=== PATIENT | female | born 1950 | race Caucasian/White ===

== ENCOUNTER → 2016-08-15 | Outpatient (CLI) | payer BC | LOC: US 15:30 | DX: M79.605 Pain in left leg (principal); R22.42 Localized swelling, mass and lump, left lower limb; Z86.718 Personal history of other venous thrombosis and embolism | CPT/HCPCS: 93971 ==

== ENCOUNTER → 2016-08-29 | Outpatient (CLI) | payer BC | LOC: KOH-I 12:00 | DX: M54.5 Low back pain (principal); M47.816 Spondylosis without myelopathy or radiculopathy, lumbar region; M25.78 Osteophyte, vertebrae | CPT/HCPCS: 72110 ==

== ENCOUNTER → 2016-11-08 | Outpatient (CLI) | payer BC | LOC: KOH-I 10:59 | DX: M79.662 Pain in left lower leg (principal); M25.552 Pain in left hip; M25.572 Pain in left ankle and joints of left foot | CPT/HCPCS: 73552; 73564; 73590 ==

== ENCOUNTER → 2020-06-10 | Outpatient (CLI) | payer BC, OTHER | LOC: EXRD 12:59 | DX: M19.90 Unspecified osteoarthritis, unspecified site (principal) | CPT/HCPCS: 73030 ==

== ENCOUNTER 2021-03-04 11:25 | Inpatient (IN) | payer MEDICARE, BC ==
[~2021-03-04] VITALS: Ht 165.1 cm; Wt 115.7 kg
[2021-03-04 13:00] LABS: HEMOGLOBIN 15.7 gm/dl (12.3-15.3); RED BLOOD COUNT 4.88 M/UL (4.00-5.10); WHITE BLOOD COUNT 12.7 K/UL (4.5-11.0)
[2021-03-04 13:24] LABS: BUN/CREATININE RATIO 7 (0-10)
[2021-03-04] MEDS ORDERED: AMLODIPINE BESYL5 MG PO (22:19)
[2021-03-04] MEDS ORDERED: ASPIRIN81 MG PO (22:19)
[2021-03-04] MEDS ORDERED: VITAMIN D325 MCG PO (22:21)
[2021-03-04] MEDS ORDERED: PREVACID30 MG PO (22:21)
[2021-03-04] MEDS ORDERED: LEXAPRO10 MG PO (22:21)
[2021-03-04] MEDS ORDERED: LEVOTHYROXINE88 MC1 PO (22:22)
[2021-03-04] MEDS ORDERED: METHOTREXATE T2.5 MG PO (22:24)
[2021-03-04] MEDS ORDERED: MILLIPRED DP5 M1 PO (22:25)
[2021-03-04] MEDS ORDERED: VALSARTAN160 MG PO (22:26)
[2021-03-04] MEDS ORDERED: VITAMIN B-121000 MC1 PO (22:26)
[2021-03-04] MEDS ORDERED: CRESTOR20 MG PO (22:26)
[2021-03-05 06:04] LABS: HEMOGLOBIN 12.9 gm/dl (12.3-15.3); RED BLOOD COUNT 4.07 M/UL (4.00-5.10); WHITE BLOOD COUNT 8.2 K/UL (4.5-11.0)
[2021-03-06 07:10] LABS: HEMOGLOBIN 13.4 gm/dl (12.3-15.3); RED BLOOD COUNT 4.26 M/UL (4.00-5.10); WHITE BLOOD COUNT 6.7 K/UL (4.5-11.0)
[2021-03-06 10:31] LABS: ADENOVIRUS F 40/41 Not Detected (Negative); ASTROVIRUS Not Detected (Negative); CAMPYLOBACTER Not Detected (Negative); CLOSTRIDIUM DIFFICILE TOX A/B Not Detected (Negative); CRYPTOSPORIDIUM Not Detected (Negative); E.COLI 0157 Not Detected (Negative); ENTAMOEBA HISTOLYTICA Not Detected (Negative); ENTEROAGGREGATIVE E.COLI (EAEC Not Detected (Negative); ENTEROPATHOGENIC E.COLI (EPEC) Not Detected (Negative); ENTEROTOXIGENIC E.COLI (ETEC) Not Detected (Negative); GIARDIA LAMBLIA Not Detected (Negative); NOROVIRUS GI/GII Not Detected (Negative); PLESIOMONAS SHIGELLOIDES Not Detected (Negative); ROTOVIRUS A Not Detected (Negative); SALMONELLA Not Detected (Negative); SAPOVIRUS Not Detected (Negative); SHIG/ENTEROINVAS.ECOLI (EIEC) Not Detected (Negative); SHIGA-LIK TOX.PRO.E.COLI (STEC Not Detected (Negative); VIBRIO Not Detected (Negative); VIBRIO CHOLERAE Not Detected (Negative); YERSINIA ENTEROCOLITICA Not Detected (Negative)
[2021-03-06] MEDS ORDERED: AUGMENTIN 875-1 EACH PO (12:02)
== END 2021-03-06 14:20 | disposition home or self-care (01) | DRG 392 ==
LOC: ER1 11:25 → CDU 18:22 → M/S 21:55
PROVIDERS: Physician Assistant; Student in an Organized Health Care Education/Training Program; ADMIT Internal Medicine
DX: K57.20 Diverticulitis of large intestine with perforation and abscess without bleeding (principal); N17.9 Acute kidney failure, unspecified; J96.11 Chronic respiratory failure with hypoxia; Z20.822 Contact with and (suspected) exposure to COVID-19; E86.0 Dehydration; E78.5 Hyperlipidemia, unspecified; E03.9 Hypothyroidism, unspecified; E66.01 Morbid (severe) obesity due to excess calories; I10 Essential (primary) hypertension; D75.1 Secondary polycythemia; D86.9 Sarcoidosis, unspecified; Z79.52 Long term (current) use of systemic steroids; Z90.710 Acquired absence of both cervix and uterus; Z79.899 Other long term (current) drug therapy; Z85.038 Personal history of other malignant neoplasm of large intestine; Z98.890 Other specified postprocedural states
CPT/HCPCS: 36415; 71045; 80048; 80053; 82550; 82553; 83605; 83690; 83874; 84484; 85025; 86140; 87507; 93005; 94760; 96374; 96375; 99285; J1335; J1644; J2405; J2543; J2550; U0002